=== PATIENT | male | born 1945 | race American Indian/Alaskan Native ===

== ENCOUNTER 2017-04-14 09:18 | Outpatient (CLI) | payer MEDICARE ==
--- NOTE | 2017-04-14 12:22 | Cat Scan Report ---
CT scan of abdomen and pelvis without IV contrast: History: Abdominal hernia without obstruction. Findings: Normal lung bases. No pleural pericardial effusion. Normal liver spleen pancreas. Small calculi in the gallbladder. Small hiatal hernia. Normal adrenals kidney parenchyma and bladder. Prostate measures 4.9 x 5.5 cm. No free intraperitoneal fluid or air. No evidence of adenopathy. Small umbilical hernia containing fat. Gaseous colon with moderate volume stool in colon. No bowel distention. Impression: Small umbilical hernia containing fat. Tiny calculi in the gallbladder. Enlarged prostate.
== END 2017-04-14 09:19 | disposition home or self-care (01) ==
LOC: CT 09:18
PROVIDERS: ATTEND Internal Medicine
DX: K44.9 Diaphragmatic hernia without obstruction or gangrene (principal); K42.9 Umbilical hernia without obstruction or gangrene; K80.20 Calculus of gallbladder without cholecystitis without obstruction; N40.0 Benign prostatic hyperplasia without lower urinary tract symptoms
CPT/HCPCS: 74176